=== PATIENT | male | born 2000 | race Caucasian/White ===

== ENCOUNTER 2025-05-03 15:43 | Emergency (ER) | payer SELFPAY ==
[~2025-05-03] VITALS: Ht 188 cm; Wt 79.5 kg
[2025-05-03] MEDS: ALBUTEROL/IPRATROPIUM 3 ML NEB NEB ONE (17:05)
[2025-05-03 17:20] VITALS: PULSE 84; RESP 18
[2025-05-03] MEDS ORDERED: VENTOLIN HFA18 GM INH (17:23)
[2025-05-03] MEDS ORDERED: AMOXICILLIN500 MG PO (17:24)
[2025-05-03 17:29] VITALS: PULSE 84; RESP 18; TEMP 97.5; O2SAT 99
== END 2025-05-03 17:43 | disposition home or self-care (01) ==
LOC: FSED 15:58
DX: R05.9 Cough, unspecified (principal); J06.9 Acute upper respiratory infection, unspecified; R51.9 Headache, unspecified; Z11.52 Encounter for screening for COVID-19
CPT/HCPCS: 0223U; 71046; 83518; 87400; 99283